=== PATIENT | female | born 1935 | race Caucasian/White ===

== ENCOUNTER → 2017-06-06 | Day surgery (SDC) | payer OTHER ==
[2017-06-05 14:45] VITALS: BMI 27.6
[~2017-06-06] MED LIST: ETOMIDATE 20 MG/10 ML AMPUL IVPUSH ONE; ONDANSETRON 4 MG/2 ML VIAL ONE; PROPOFOL 20 ML ONE
[2017-06-06 09:50] VITALS: TEMP 98.4
[2017-06-06 10:47] VITALS: BP 137/60; PULSE 65
== END | disposition home or self-care (01) ==
LOC: JASU-ENDO 08:26
PROVIDERS: ATTEND Internal Medicine Gastroenterology
PROC: 0DJD8ZZ Inspection of Lower Intestinal Tract, Via Natural or Artificial Opening Endoscopic (ICD-10-PCS; 2017-06-06)
PROC: 0DJ08ZZ Inspection of Upper Intestinal Tract, Via Natural or Artificial Opening Endoscopic (ICD-10-PCS; principal; 2017-06-06 09:30)
DX: Z12.11 Encounter for screening for malignant neoplasm of colon (principal); K63.5 Polyp of colon; Z86.010 Personal history of colon polyps; K29.70 Gastritis, unspecified, without bleeding; K31.7 Polyp of stomach and duodenum; R14.0 Abdominal distension (gaseous); R11.0 Nausea; R14.2 Eructation; I10 Essential (primary) hypertension; E78.5 Hyperlipidemia, unspecified; Z85.3 Personal history of malignant neoplasm of breast; Z85.828 Personal history of other malignant neoplasm of skin; K58.9 Irritable bowel syndrome, unspecified; I51.81 Takotsubo syndrome; E83.119 Hemochromatosis, unspecified; J45.909 Unspecified asthma, uncomplicated
CPT/HCPCS: 43235; G0105